=== PATIENT | female | born 1960 | race Caucasian/White ===

== ENCOUNTER → 2021-07-09 | Outpatient (CLI) | payer OTHER ==
[~2021-07-09] MED LIST: ASPIRIN CHEWABL81 MG PO; CALCIUM + VITA1 EACH PO; COREG 12.5MG12.5 MG PO; FISH OIL 1,0001 EACH PO; K-DUR TAB 20 M20 MEQ PO; LEVOTHYROXINE50 MCG PO; LOPID TAB 600600 MG PO; MEGA BIOTIN10000 MCG PO; NORVASC10 MG PO; OMEPRAZOLE20 MG PO; VALIUM 2 MG TAB2 MG PO; VALSARTAN-HCTZ1 EAC3 PO; VITAMIN B-121000 MCG PO; VITAMIN D32000 UNI1 PO
[2021-07-09 09:42] LABS: HEMOGLOBIN 14.5 gm/dl (12.3-15.3); RED BLOOD COUNT 4.73 M/UL (4.00-5.10); WHITE BLOOD COUNT 10.8 K/UL (4.5-11.0)
[2021-07-09 10:06] LABS: BUN/CREATININE RATIO 24 (0-10)
== END ==
LOC: LAB 09:14
PROVIDERS: Internal Medicine
DX: E11.9 Type 2 diabetes mellitus without complications (principal); D51.0 Vitamin B12 deficiency anemia due to intrinsic factor deficiency
CPT/HCPCS: 36415; 80048; 80061; 80076; 82607; 83036; 84443; 85025

== ENCOUNTER → 2021-10-26 | Outpatient (CLI) | payer MEDICARE | LOC: KOH-I 15:08 | DX: M25.551 Pain in right hip (principal); M54.30 Sciatica, unspecified side | CPT/HCPCS: 72110; 73502 ==

== ENCOUNTER → 2021-12-04 | Outpatient (CLI) | payer MEDICARE ==
[2021-12-04 12:36] LABS: HEMOGLOBIN 14.7 gm/dl (12.3-15.3); RED BLOOD COUNT 4.78 M/UL (4.00-5.10)
[2021-12-04 12:57] LABS: BUN/CREATININE RATIO 19 (0-10)
== END ==
LOC: LAB 11:42
PROVIDERS: Physician Assistant
DX: R42 Dizziness and giddiness (principal)
CPT/HCPCS: 36415; 80048; 85025